=== PATIENT | female | born 1975 | race Caucasian/White ===

== ENCOUNTER 2024-11-12 11:40 | Outpatient (CLI) | payer BC ==
[~2024-11-12] VITALS: Ht 170.2 cm; Wt 106.5 kg
[~2024-11-12 11:40] MED LIST: ALBUTEROL SULFATE 2.5MG/0.5ML INH NEB SOLN INH PRN; EPINEPHrine INJ 1 MG/ML 1ML AMP IM PRN; diphenhydrAMINE 50MG/ML VIAL IV PRN; methylPREDNISolone 125MG 2ML VIAL IV PRN
[2024-11-12 11:50] VITALS: BP 142/90; O2SAT 96
[2024-11-12] MEDS ORDERED: NS (Normal Saline) 0.9% 1,000 ML IV SCH (12:30)
[2024-11-12] MEDS: NATALIZUMAB OVER 1 HOUR IV ONE (12:58)
[2024-11-12 14:29] VITALS: BP 130/71; O2SAT 97
== END 2024-11-12 14:30 ==
LOC: M INFU 11:40
PROVIDERS: ATTEND Psychiatry & Neurology Neurology
DX: G35 Multiple sclerosis (principal); Z88.8 Allergy status to other drugs, medicaments and biological substances
CPT/HCPCS: 96365; J2323

== ENCOUNTER 2024-12-10 12:15 | Outpatient (CLI) | payer BC ==
[~2024-12-10] VITALS: Ht 170.2 cm; Wt 109.0 kg
[~2024-12-10 12:15] MED LIST changes: +NS (Normal Saline) 0.9% 1,000 ML IV SCH
[2024-12-10 12:30] VITALS: BP 123/72; O2SAT 97
[2024-12-10] MEDS: NATALIZUMAB OVER 1 HOUR IV ONE (12:57)
[2024-12-10 14:10] VITALS: BP 135/67; O2SAT 98
== END 2024-12-10 14:10 | disposition home or self-care (01) ==
LOC: M INFU 12:15
PROVIDERS: ATTEND Psychiatry & Neurology Neurology
DX: G35 Multiple sclerosis (principal); Z88.8 Allergy status to other drugs, medicaments and biological substances
CPT/HCPCS: 96365; J2323

== ENCOUNTER 2025-04-18 13:08 | Outpatient (CLI) | payer BC ==
[~2025-04-18] VITALS: Ht 170.2 cm; Wt 109.1 kg
[2025-04-18 13:25] VITALS: BP 123/69; O2SAT 99
[2025-04-18] MEDS: NATALIZUMAB OVER 1 HOUR IV ONE (14:21)
[2025-04-18 15:25] VITALS: BP 134/64; O2SAT 99
== END 2025-04-18 15:30 | disposition home or self-care (01) ==
LOC: M INFU 13:08
PROVIDERS: ATTEND Psychiatry & Neurology Neurology
DX: G35 Multiple sclerosis (principal); Z88.8 Allergy status to other drugs, medicaments and biological substances
CPT/HCPCS: 96365; J2323

== ENCOUNTER 2025-05-16 13:35 | Outpatient (CLI) | payer BC ==
[~2025-05-16] VITALS: Ht 170.2 cm; Wt 109.1 kg
[2025-05-16 13:55] VITALS: BP 120/74; O2SAT 98
[2025-05-16] MEDS: NATALIZUMAB OVER 1 HOUR IV ONE (14:54)
== END 2025-05-16 16:10 | disposition home or self-care (01) ==
LOC: M INFU 13:35
PROVIDERS: ATTEND Psychiatry & Neurology Neurology
DX: G35 Multiple sclerosis (principal); Z88.8 Allergy status to other drugs, medicaments and biological substances
CPT/HCPCS: 96365; J2323

== ENCOUNTER 2025-06-13 10:48 | Outpatient (CLI) | payer BC ==
[~2025-06-13] VITALS: Ht 170.2 cm; Wt 109.0 kg
[2025-06-13 10:55] VITALS: BP 135/66; O2SAT 98
[2025-06-13] MEDS: NATALIZUMAB OVER 1 HOUR IV ONE (11:57)
[2025-06-13 13:02] VITALS: BP 144/72; O2SAT 96
== END 2025-06-13 13:10 | disposition home or self-care (01) ==
LOC: M INFU 10:48
PROVIDERS: ATTEND Psychiatry & Neurology Neurology
DX: G35 Multiple sclerosis (principal); Z88.8 Allergy status to other drugs, medicaments and biological substances
CPT/HCPCS: 96365; J2323

== ENCOUNTER 2025-07-22 10:56 | Outpatient (CLI) | payer BC ==
[~2025-07-22] VITALS: Ht 170.2 cm; Wt 113.6 kg
[~2025-07-22 10:56] MED LIST changes: -ALBUTEROL SULFATE 2.5MG/0.5ML INH NEB SOLN INH PRN; -EPINEPHrine INJ 1 MG/ML 1ML AMP IM PRN; +NATALIZUMAB OVER 1 HOUR IV ONE; -NS (Normal Saline) 0.9% 1,000 ML IV SCH; -diphenhydrAMINE 50MG/ML VIAL IV PRN; -methylPREDNISolone 125MG 2ML VIAL IV PRN
[2025-07-22 11:20] VITALS: BP 132/75; O2SAT 98
[2025-07-22] MEDS: NATALIZUMAB OVER 1 HOUR IV ONE (12:13)
[2025-07-22 13:20] VITALS: BP 132/70; O2SAT 98
== END 2025-07-22 13:20 | disposition home or self-care (01) ==
LOC: M INFU 10:56
PROVIDERS: ATTEND Psychiatry & Neurology Neurology
DX: G35.D Multiple sclerosis, unspecified (principal); Z88.8 Allergy status to other drugs, medicaments and biological substances
CPT/HCPCS: 96365; J2323

== ENCOUNTER 2025-08-19 11:24 | Outpatient (CLI) | payer BC ==
[~2025-08-19] VITALS: Ht 170.2 cm; Wt 111.0 kg
[2025-08-19 11:40] VITALS: BP 126/74; O2SAT 96
[2025-08-19] MEDS: NATALIZUMAB OVER 1 HOUR IV ONE (12:34)
[2025-08-19 13:40] VITALS: BP 131/74; O2SAT 96
== END 2025-08-19 13:40 | disposition home or self-care (01) ==
LOC: M INFU 11:24
PROVIDERS: ATTEND Psychiatry & Neurology Neurology
DX: G35.D Multiple sclerosis, unspecified (principal); Z88.8 Allergy status to other drugs, medicaments and biological substances
CPT/HCPCS: 96365; J2323

== ENCOUNTER 2025-09-14 10:46 | Outpatient (CLI) | payer BC ==
[~2025-09-14] VITALS: Ht 170.2 cm; Wt 115.0 kg
[2025-09-14 10:45] VITALS: BP 138/83; O2SAT 94
[2025-09-14] MEDS: NATALIZUMAB OVER 1 HOUR IV ONE (11:35)
[2025-09-14 12:35] VITALS: BP 132/76; O2SAT 98
== END 2025-09-14 12:35 | disposition home or self-care (01) ==
LOC: M INFU 10:46
PROVIDERS: ATTEND Psychiatry & Neurology Neurology
DX: G35.D Multiple sclerosis, unspecified (principal); Z88.8 Allergy status to other drugs, medicaments and biological substances
CPT/HCPCS: 96365; J2323